=== PATIENT | male | born 2000 | race African-American/Black ===

== ENCOUNTER 2023-02-19 02:32 | Emergency (ER) | payer OTHER ==
[2023-02-19 02:42] VITALS: BP 138/76; RESP 16; TEMP 97.7
[2023-02-19] MEDS ORDERED: DIPH,PERTUS(ACELL)TETVAC-LF 0.5 ML VIAL IM ONE (02:54)
[2023-02-19] MEDS ORDERED: LIDOCAINE 1% INJ 10MG/ML (30 ML VIAL-PF) SQ ONE (02:54)
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
[2023-02-19] MEDS ORDERED: IBUPROFEN 600 MG TAB PO STA (03:04)
[2023-02-19 04:55] VITALS: PULSE 95
--- NOTE | 2023-02-19 05:08 | XR ---
EXAMINATION TYPE: XR chest 2V DATE OF EXAM: 02/19/2023 3:21 AM COMPARISON: Chest radiographs from 09/21/2010. TECHNIQUE: XR chest 2V Frontal and lateral views of the chest. CLINICAL INDICATION:Male, 22 years old with history of SOB; FINDINGS: Lungs/Pleura: There is no evidence of pleural effusion, focal consolidation, or pneumothorax. Pulmonary vascularity: Unremarkable. Heart/mediastinum: Cardiomediastinal silhouette is unremarkable. Musculoskeletal: No acute osseous pathology. IMPRESSION: No acute cardiopulmonary disease/process.
== END 2023-02-19 05:07 | disposition home or self-care (01) ==
LOC: EC 02:32
DX: S81.811A Laceration without foreign body, right lower leg, initial encounter (principal); F12.90 Cannabis use, unspecified, uncomplicated; Z23 Encounter for immunization; X58.XXXA Exposure to other specified factors, initial encounter; Y93.02 Activity, running
CPT/HCPCS: 71046; 90715; 99284; 90471; 12002; J2001